=== PATIENT | female | born 1985 | race Caucasian/White ===

== ENCOUNTER → 2020-08-07 | Outpatient (CLI) | payer OTHER ==
[2020-08-07 09:36] LABS: U PREG PATIENT NEGATIVE (NEG)
--- NOTE | 2020-08-07 11:02 | RAD ---
EXAM: CT Head without IV contrast INDICATION: Reason: TINGLING IN FACE DIZZINESS AND DIZZINESS / Spl. Instructions: PENDING T EST / History: TECHNIQUE: Multi-detector row CT images were obtained of the head without the use of IV contrast. All CT scans performed at this facility utilize dose optimization techniques as appropriate to the exam, including the following: Automated exposure control and adjustment of the mA and/or KV according to patient size (this includes techniques or standardized protocols for targeted exams where dose is ind ication/reason for exam). COMPARISON: None FINDINGS: BRAIN PARENCHYMA: No evidence of acute intraparenchymal hemorrhage or infarct. No abnormal parenchyma l density or mass. VENTRICLES & EXTRA-AXIAL SPACES: Ventricles are within normal limits. Basilar cisterns are patent. N o pathologic extra-axial fluid collection or mass. ORBITS: Orbital contents are unremarkable. SINUSES: Visualized paranasal sinuses and mastoid air cells are clear. OSSEOUS & SOFT TISSUES: Calvarium and skull base are intact. IMPRESSION: Normal CT of the head without contrast. Electronically signed by: Ganesh Doe MD (08/07/2020 11:00 AM) [id number]
== END ==
LOC: CT 08:29
PROVIDERS: ATTEND Clinical Nurse Specialist Family Health
DX: R29.818 Other symptoms and signs involving the nervous system (principal); R42 Dizziness and giddiness
CPT/HCPCS: 70450; 81025